=== PATIENT | female | born 1990 | race Caucasian/White ===

== ENCOUNTER 2016-10-13 13:59 | Inpatient (IN) | payer BC, OTHER ==
[~2016-10-13] VITALS: Ht 175.3 cm; Wt 52.3 kg
[2016-10-13 14:28] VITALS: BP 140/94; PULSE 100; RESP 20; TEMP 99.2; O2SAT 96
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
[2016-10-13 15:07] LABS: BLOOD, URINE SMALL (NEG); GLUCOSE,URINE NEG (NEG); KETONE, URINE NEG (NEG); NITRITE,URINE NEG (NEG); SQUAMOUS EPITHELIAL CELL URINE <1 /hpf (0-5); URINE COLOR LIGHT-YELLOW (YELLW/STRAW)
[2016-10-13 15:15] LABS: COMMENT (UR) CULT NOT INDICATED; CULTURE IF INDICATED CULT NOT INDICATED
[2016-10-13 15:40] LABS: AMPHETAMINE, URINE NEG (NEG); BARBITURATES, URINE NEG (NEG); COCAINE, URINE NEG (NEG)
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
[2016-10-13 17:00] LABS: AUTOMATED NEUTROPHIL # 3.8 TH/MM3 (1.8-7.7); BASOPHIL # 0.1 TH/MM3 (0-0.2); EOSINOPHIL % 0.6 % (0.0-4.0); HEMO FLAGS DIFF FINAL; LYMPH % 37.7 % (9.0-44.0); LYMPHOCYTE # 2.6 TH/MM3 (1.0-4.8); MEAN CELL VOLUME 93.8 FL (80.0-100.0); MEAN CORPUSCULAR HGB CONC 34.1 % (32.0-36.0); MONO % 4.7 % (0.0-8.0); PLATELET COUNT 250 TH/MM3 (150-450); RED BLOOD COUNT 4.27 MIL/MM3 (4.00-5.30); RED CELL DISTRIBUTION WIDTH 12.3 % (11.6-17.2); WHITE BLOOD COUNT 6.8 TH/MM3 (4.0-11.0)
[2016-10-13 17:16] LABS: ALT (GPT) 12 U/L (10-53); ANION GAP 10 MEQ/L (5-15); AST (GOT) 18 U/L (15-37); BICARBONATE 26.1 MEQ/L (21.0-32.0); BLOOD UREA NITROGEN 12 MG/DL (7-18); CHLORIDE 107 MEQ/L (98-107); GLOMERULAR FILTRATION RATE 78 ML/MIN (>89); POTASSIUM 3.7 MEQ/L (3.5-5.1); SODIUM (NA) 143 MEQ/L (136-145)
[2016-10-13 17:18] LABS: ALKALINE PHOSPHATASE 41 U/L (45-117); TOTAL BILIRUBIN ADULT 0.2 MG/DL (0.2-1.0)
[2016-10-13] MEDS ORDERED: ALUMINUM/MAGNESIUM/SIMETH 30 ML CUP PO PRN (18:15)
[2016-10-13] MEDS ORDERED: MAGNESIUM HYDROXIDE SUSP 30 ML CUP PO PRN (18:15)
[2016-10-13] MEDS ORDERED: LORazepam 2 MG/ML VIAL IM PRN ×4 (18:15)
[2016-10-13] MEDS ORDERED: hydrOXYzine HCL 50 MG TAB PO PRN (18:15)
[2016-10-13] MEDS ORDERED: LORazepam 2 MG TAB PO PRN (18:15)
[2016-10-13] MEDS ORDERED: FLUMAZENIL 0.5 MG/5 ML VIAL IV PUSH PRN (18:15)
[2016-10-13] MEDS ORDERED: ACETAMINOPHEN 325 MG TAB PO PRN (18:15)
[2016-10-13 18:38] VITALS: BP 112/73; PULSE 77; RESP 18; O2SAT 98
[2016-10-13 20:08] VITALS: BP 114/83; PULSE 77; RESP 16; TEMP 98.5; O2SAT 99
[2016-10-13] MEDS: LORazepam 1 MG TAB PO PRN (20:43)
[2016-10-13] MEDS: traZODone HCL 50 MG TAB PO PRN (22:03)
[2016-10-14 05:40] VITALS: BP 95/56; PULSE 65; RESP 18; TEMP 98.5; O2SAT 95
[2016-10-14] MEDS: THIAMINE HCL 100 MG TAB PO SCH (08:48)
[2016-10-14] MEDS: FOLIC ACID 1 MG TAB PO SCH (08:48)
[2016-10-14] MEDS: NICOTINE 21 MG/24 HR PATCH T-DERMAL SCH (09:00)
[2016-10-14 09:46] LABS: ANION GAP 7 MEQ/L (5-15); BICARBONATE 30.2 MEQ/L (21.0-32.0); BLOOD UREA NITROGEN 15 MG/DL (7-18); CHLORIDE 103 MEQ/L (98-107); FREE T4 0.98 NG/DL (0.76-1.46); GLOMERULAR FILTRATION RATE 62 ML/MIN (>89); HDL CHOLESTEROL 85.1 MG/DL (40.0-60.0); LDL CHOLESTEROL 66 MG/DL (0-99); POTASSIUM 4.3 MEQ/L (3.5-5.1); SODIUM (NA) 140 MEQ/L (136-145)
--- NOTE | 2016-10-14 14:25 | HHI.PYPN ---
Subjective Remarks Patient was seen and case discussed with nursing. This is a second opinion from Dr. Vidal. Patient was seen and admission note reviewed. The patient is admitted with suicidal ideation and is reaching for a gun safe. Patient is pleasant and cooperative with exam with an anxious affect. She is perseverative on discharge. She minimizes her her actions but does admit to suicidal ideation before admission. Stressors include a breakup with her girlfriend. Patient is alert and oriented 3, no tremors, vital signs within range, no visual hallucinations, no evidence of alcohol withdrawal Objective Alert: Yes [place]: Person, Place, Date Mood: Anxious Affect: Blunted Memory Intact: Immediate Hallucinations: Other Delusions: No Delusion Type: Other Suicidal: Ideation (denies) Homicidal: Ideation (denies) Insight/Judgement Poor Labs Test 10/13/16 10/13/16 10/14/16 14:45 16:38 08:20 Urine Color LIGHT-YELLOW Urine Turbidity CLEAR Urine pH 6.0 Urine Specific [place] 1.004 Urine Protein TRACE mg/dL Urine Glucose (UA) NEG mg/dL Urine Ketones NEG mg/dL Urine Occult Blood SMALL Urine Nitrite NEG Urine Bilirubin NEG Urine Urobilinogen LESS THAN 2.0 MG/DL Urine Leukocyte Esterase NEG Urine RBC LESS THAN 1 /hpf Urine WBC 1 /hpf Urine Squamous Epithelial <1 /hpf Cells Microscopic Urinalysis Comment CULT NOT INDICATED Urine Opiates Screen NEG Urine Barbiturates Screen NEG Urine Amphetamines Screen NEG Urine Benzodiazepines Screen NEG Urine Cocaine Screen NEG Urine Cannabinoids Screen NEG White Blood Count 6.8 TH/MM3 Red Blood Count 4.27 MIL/MM3 Hemoglobin 13.7 GM/DL Hematocrit 40.0 % Mean Corpuscular Volume 93.8 FL Mean Corpuscular Hemoglobin 32.0 PG Mean Corpuscular Hemoglobin 34.1 % Concent Red Cell Distribution Width 12.3 % Platelet Count 250 TH/MM3 Mean Platelet Volume 9.4 FL Neutrophils (%) (Auto) 56.0 % Lymphocytes (%) (Auto) 37.7 % Monocytes (%) (Auto) 4.7 % Eosinophils (%) (Auto) 0.6 % Basophils (%) (Auto) 1.0 % Neutrophils # (Auto) 3.8 TH/MM3 Lymphocytes # (Auto) 2.6 TH/MM3 Monocytes # (Auto) 0.3 TH/MM3 Eosinophils # (Auto) 0.0 TH/MM3 Basophils # (Auto) 0.1 TH/MM3 CBC Comment DIFF FINAL Differential Comment Sodium Level 143 MEQ/L 140 MEQ/L Potassium Level 3.7 MEQ/L 4.3 MEQ/L Chloride Level 107 MEQ/L 103 MEQ/L Carbon Dioxide Level 26.1 MEQ/L 30.2 MEQ/L Anion Gap 10 MEQ/L 7 MEQ/L Blood Urea Nitrogen 12 MG/DL 15 MG/DL Creatinine 0.88 MG/DL 1.07 MG/DL Estimat Glomerular Filtration 78 ML/MIN 62 ML/MIN Rate Random Glucose 112 MG/DL 144 MG/DL Calcium Level 8.6 MG/DL 8.7 MG/DL Total Bilirubin 0.2 MG/DL Aspartate Amino Transf 18 U/L (AST/SGOT) Alanine Aminotransferase 12 U/L (ALT/SGPT) Alkaline Phosphatase 41 U/L Total Protein 7.0 GM/DL Albumin 4.1 GM/DL Beta HCG, Qualitative LESS THAN 1 MIU/ML Ethyl Alcohol Level 160 MG/DL Triglycerides Level 52 MG/DL Cholesterol Level 161 MG/DL LDL Cholesterol 66 MG/DL HDL Cholesterol 85.1 MG/DL Cholesterol/HDL Ratio 1.89 RATIO Free Thyroxine 0.98 NG/DL Thyroid Stimulating Hormone 2.070 uIU/ML 3rd Gen Vitals/IOs Vital Signs Date Time Temp Pulse Resp B/P Pulse Ox O2 Delivery O2 Flow Rate FiO2 10/14/16 05:40 98.5 65 18 95/56 95 10/13/16 18:38 Room Air Assessment & Plan Problem List: (1) Adjustment disorder ICD Code: F43.20 (2) Alcohol use ICD Code: Z78.9 Assessment & Plan I agree with first opinion to continue petition. Criteria include suicidal ideation, poor insight, alcohol use, history of unstable moods are collateral Justification for Cont. Inpt. Patient will decompensate in a less restrictive setting Request HC Surrog/Guard Advoc?: No Problem Qualifiers (1) Adjustment disorder: Qualified Code: F43.25 - Adjustment disorder with mixed disturbance of emotions and conduct Siddharth Sotomayor DO Oct 14, 2016 14:25
[2016-10-14 18:33] VITALS: BP 108/61; PULSE 78; RESP 18; TEMP 98.8; O2SAT 100
[2016-10-14] MEDS: REMOVE OLD PATCH T-DERMAL SCH (21:00)
[2016-10-14] MEDS: traZODone HCL 50 MG TAB PO PRN (21:27)
[2016-10-15 04:44] VITALS: BP 90/52; PULSE 67; RESP 16; TEMP 98.4; O2SAT 96
[2016-10-15] MEDS: NICOTINE 21 MG/24 HR PATCH T-DERMAL SCH (09:00)
[2016-10-15] MEDS: FOLIC ACID 1 MG TAB PO SCH (09:05)
[2016-10-15] MEDS: THIAMINE HCL 100 MG TAB PO SCH (09:05)
[2016-10-15 09:21] LABS: HEMOGLOBIN A1a 0.8 %; HEMOGLOBIN A1b 1.3 %; HEMOGLOBIN Ao 86.9 %; HEMOGLOBIN LA1C 2.2 %; HEMOGLOBIN P3 3.3 %
--- NOTE | 2016-10-15 11:15 | HHI.PYPN ---
Subjective Remarks Patient was seen and case discussed with nursing. Patient is pleasant and cooperative with exam. She is perseverative on discharge. Saying she has to get back to work and taking care of her son. Had a visit from her girlfriend yesterday insists today that they made up. Denies depressed mood. Denies suicidal ideation intent or plan. Per nursing she is interacting well with others. CIWA-1. Objective Alert: Yes [place]: Person, Place, Date Mood: Anxious Affect: Blunted Memory Intact: Immediate Hallucinations: Other Delusions: No Delusion Type: Other Suicidal: Ideation (denies) Homicidal: Ideation (denies) Insight/Judgement Fair Vitals/IOs Vital Signs Date Time Temp Pulse Resp B/P Pulse Ox O2 Delivery O2 Flow Rate FiO2 10/15/16 04:44 98.4 67 16 90/52 96 10/13/16 18:38 Room Air Assessment & Plan Problem List: (1) Adjustment disorder ICD Code: F43.20 (2) Alcohol use ICD Code: Z78.9 Assessment & Plan Continue current treatment plan Justification for Cont. Inpt. Patient will decompensate in a less restrictive setting Request HC Surrog/Guard Advoc?: No Problem Qualifiers (1) Adjustment disorder: Qualified Code: F43.25 - Adjustment disorder with mixed disturbance of emotions and conduct Siddharth Sotomayor DO Oct 15, 2016 11:15
[2016-10-15] MEDS: LORazepam 1 MG TAB PO PRN (13:32)
[2016-10-15 18:47] VITALS: BP 116/85; PULSE 72; RESP 16; TEMP 98.6; O2SAT 100
[2016-10-15] MEDS: REMOVE OLD PATCH T-DERMAL SCH (20:52)
[2016-10-15] MEDS: traZODone HCL 50 MG TAB PO PRN (21:06)
[2016-10-16 04:49] VITALS: BP 88/52; PULSE 67; RESP 16; TEMP 98.4; O2SAT 98
[2016-10-16 05:01] VITALS: BP 88/52; PULSE 67; RESP 16; TEMP 98.4; O2SAT 98
[2016-10-16] MEDS: THIAMINE HCL 100 MG TAB PO SCH (08:55)
[2016-10-16] MEDS: FOLIC ACID 1 MG TAB PO SCH (08:55)
[2016-10-16] MEDS: NICOTINE 21 MG/24 HR PATCH T-DERMAL SCH (08:56)
[2016-10-16] MEDS ORDERED: VITA100T2 PO (10:10)
[2016-10-16] MEDS ORDERED: FOLI1TAB4 PO (10:10)
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
== END 2016-10-16 14:20 | disposition home or self-care (01) | DRG 882 ==
LOC: NEPJ 13:59 → NEDA 18:04 → H260 19:59
PROVIDERS: ADMIT Psychiatry & Neurology Psychiatry; ATTEND Psychiatry & Neurology Psychiatry
DX: F43.25 Adjustment disorder with mixed disturbance of emotions and conduct (principal); R45.851 Suicidal ideations; F10.10 Alcohol abuse, uncomplicated; Y90.6 Blood alcohol level of 120-199 mg/100 ml
CPT/HCPCS: 80048; 80053; 80061; 80307; 80320; 81001; 83036; 84439; 84443; 84703; 85025; 99284